=== PATIENT | female | born 1960 | race Caucasian/White ===

== ENCOUNTER 2019-09-06 06:46 | Outpatient (CLI) | payer BC, OTHER ==
[2019-09-06 13:52] LABS: #Eosinphils 0.1 thou/uL (0.0-0.7); #Lymphocytes 2.4 thou/uL (1.20-3.40); #Monocytes 0.4 thou/uL (0.11-0.59); #Neutrophils 2.5 thou/uL (1.40-6.50); %Basophils 0.5 % (0.0-1.0); %Eosinophils 2.1 % (0.0-10.0); %Lymphocytes 43.4 % (21.0-51.0); %Monocytes 8.1 % (0.0-10.0); %Neutrophils 45.9 % (42.0-75.0); Hemoglobin 14.1 g/dL (12.0-16.0); Mean Corpuscular HGB CONC 34.6 g/dL (32.0-36.0); Mean Corpuscular Hemoglobin 32.6 pg (27.0-31.0); Mean Corpuscular Volume 94.2 fL (78.0-98.0); Mean Platelet Volume 9.1 fL (7.4-10.4); Platelet Count 269 thou/uL (130-400); RBC Distribution Width 11.7 % (11.5-14.5); Red Blood Cell (RBC) Count 4.32 mill/uL (4.20-5.40); White Blood Cell (WBC) Count 5.4 thou/uL (4.8-10.8)
[2019-09-06 14:27] LABS: Bacteria/HPF None Seen HPF (None Seen); Bilirubin Negative (Negative); Blood, Urine Negative (Negative); Clarity Clear (Clear); Glucose, Urine (Dipstick) Normal (Negative); Ketone, Urine Negative (Negative); Leukocyte Negative Leu/uL (Negative); Nitrite Negative (Negative); Protein, Urine (Dipstick) Negative (Neg-Trace); RBC/HPF 0-3 HPF (0-3); Specific Gravity, Urine 1.006 (1.002-1.036); Squamous Epithelial None Seen HPF (0-3); Urobilinogen Normal mg/dL (Less than 2); WBC/HPF 0-3 HPF (0-3); pH, Urine 7.5 (5.0-9.0)
[2019-09-06 14:30] LABS: Anion Gap 14 mmol/L (10-20); BUN (Urea Nitrogen) 13 mg/dL (9.8-20.1); Calc. Creatinine Clearance 0 mL/min (70-130); Calcium 10.1 mg/dL (7.8-10.44); Carbon Dioxide 29 mmol/L (22-29); Chloride 102 mmol/L (98-107); Estimated GFR-MDRD 79; Glucose 165 mg/dL (70-105); Potassium 4.3 mmol/L (3.5-5.1); Sodium 141 mmol/L (136-145)
[2019-09-07 11:43] LABS: SARS-CoV-2 MS2 Positive; SARS-CoV-2 N Gene Negative; SARS-CoV-2 S Gene Negative; SARS-CoV-2 orf1ab Negative
== END 2019-09-06 06:47 | disposition home or self-care (01) ==
LOC: LABBT 06:46
PROVIDERS: ATTEND Orthopaedic Surgery
DX: Z01.818 Encounter for other preprocedural examination (principal); Z11.59 Encounter for screening for other viral diseases; M17.11 Unilateral primary osteoarthritis, right knee
CPT/HCPCS: 80048; 81001; 85025; 85610; 87081; 87635; 93005; 93010; U0003

== ENCOUNTER 2019-09-06 10:15 | Inpatient (IN) | payer BC ==
[2019-09-10] MEDS ORDERED: Fentanyl 100 MCG/2 ML VIAL ONE ×2 (07:48→10:23)
[2019-09-10] MEDS ORDERED: Midazolam HCl 2 mg/2 ml Vial ONE (07:48)
[2019-09-10] MEDS ORDERED: Vancomycin 1.5 GRAM/300 ML BAG ONE (08:32)
[2019-09-10] MEDS ORDERED: Tranexamic Acid 1,000 MG/10 ML VIAL ONE ×2 (08:32→12:09)
[2019-09-10] MEDS ORDERED: Sodium Chloride 0.9% 100 ML ONE (08:33)
[2019-09-10] MEDS ORDERED: Ropivacaine 0.2% HCl/PF (40 MG/20 ML VIAL) ONE (09:29)
[2019-09-10] MEDS ORDERED: Metoclopramide HCl 10 MG/2 ML VIAL ONE (09:29)
[2019-09-10] MEDS ORDERED: Ketorolac Tromethamine 30 MG/ML VIAL ONE (09:29)
[2019-09-10] MEDS ORDERED: Lidocaine 1% PF 5 ML VIAL ONE (09:29)
[2019-09-10] MEDS ORDERED: Ondansetron PF 4 MG/2 ML Vial ONE (09:29)
[2019-09-10] MEDS ORDERED: PROPOFOL 200 MG/20 ML VIAL ONE (09:29)
[2019-09-10] MEDS ORDERED: Bupivacaine HCl 0.5%/Epinephrine 1:200,000/PF 30 ml Vial ONE (09:29)
[2019-09-10] MEDS ORDERED: Acetaminophen 325 MG TAB PO PRN ×2 (10:14→11:43)
[2019-09-10] MEDS ORDERED: HYDROcodone/Acetaminophen 10/325 mg Tablet PO PRN (10:14)
[2019-09-10] MEDS ORDERED: Zolpidem Tartrate 5 MG TAB PO PRN ×2 (10:14→11:43)
[2019-09-10] MEDS ORDERED: Promethazine HCl 25 MG/ML VIAL IM PRN ×3 (10:14→12:00)
[2019-09-10] MEDS ORDERED: Fentanyl 100 MCG/2 ML VIAL SLOW IVP PRN (10:14)
[2019-09-10] MEDS ORDERED: Ropivacaine HCl/PF 250 ML in Premix Bag 1 BAG NERVE BLCK SCH (10:14)
[2019-09-10] MEDS ORDERED: traMADol HCl 50 MG TAB PO PRN ×2 (10:14)
[2019-09-10] MEDS ORDERED: Ondansetron PF 4 MG/2 ML Vial IVP PRN ×2 (10:14→11:43)
[2019-09-10] MEDS ORDERED: Bupivacaine PF 0.5% 30 ML VIAL ONE (10:52)
[2019-09-10] MEDS ORDERED: diphenhydrAMINE 25 MG CAP PO PRN (11:43)
[2019-09-10] MEDS ORDERED: Tranexamic Acid 1,000 MG in Sodium Chloride 0.9% 100 ML IVPB SCH (11:45)
[2019-09-10] MEDS ORDERED: Meperidine HCl/PF 25 MG/ML VIAL SLOW IVP PRN (12:00)
[2019-09-10] MEDS ORDERED: Promethazine HCl 25 MG/ML VIAL SLOW IVP PRN (12:00)
[2019-09-10] MEDS ORDERED: PACU-Morphine 4MG/ML VIAL SLOW IVP PRN (12:00)
--- NOTE | 2019-09-10 13:21 | OP ---
DATE OF PROCEDURE: 09/10/2019 COMMISSIONED FIRE OFFICER: Reece Cunha PA-C PREOPERATIVE DIAGNOSIS: Right knee osteoarthrosis. POSTOPERATIVE DIAGNOSIS: Right knee osteoarthrosis. PROCEDURE: Right total knee replacement using [employer] pinless navigation system. ANESTHESIA: General anesthetic. She had preoperative block. BLOOD LOSS: Minimal. COMPLICATIONS: None. TOURNIQUET TIME: DISPOSITION: She went to recovery room in stable condition. IMPLANTS: [employer] total knee system, femur size 2 cruciate retaining right femur, we size 1 primary tibial baseplate, 1 x 9 mm CS X3 tibial bearing, and a symmetric 27 x 8 X3 patella. INDICATIONS: A 59-year-old female who has significant pain on daily basis secondary from osteoarthrosis and wished to have her knee replaced. PROCEDURE IN DETAIL: After all appropriate consent forms were explained and signed, the patient was taken back to the operating room and at this time was given general anesthetic. Once the level of anesthesia was appropriate, a well-padded tourniquet was placed on the right leg, and the leg was then prepped and draped in standard surgical fashion. The limb was exsanguinated and tourniquet taken up to 300 mmHg. Midline incision was made with a 10 blade down through the skin and subcutaneous tissue. Bovie electrocautery was used to coagulate any brisk venous bleeding. A new blade was used to make a medial parapatellar arthrotomy. Small subperiosteal release was performed medially and excess fat pad was removed. The knee was flexed up to gain access to the femur. The femur was navigated and distal femoral resection was made. Epicondylar access was used to align our sizing jig and this was pinned in place. We sized our femur to be a 2. 4:1 cutting block was applied and pinned. Anterior and posterior chamfer cuts were then made. We navigated out our proximal tibia and made our proximal tibial resection. Spreaders were used to remove any posterior osteophytes off the back of the femur as well as remaining meniscal tissue. A long alignment demarco was then used to achieve correct rotation of our tibial baseplate and a size 1 primary tibial baseplate was chosen. This was pinned in place. We trialed the polyethylene and a 1 x 9 mm CS X3 tibial bearing polyethylene gave us full extension and good stability throughout range of motion. Two towel clips and a saw were used to cut our patella. Three lug nuts were drilled and symmetric 27 x 8 X3 patella was trialed which sat nicely in the trochlear groove. We then drilled our femur and punched our tibia. All components were removed. The knee was thoroughly irrigated and dried. Cement was mixed into the cement gun on the back table. Components were then placed. The knee was held out in full extension until the cement had dried. All excess bone cement was removed. Multiple #2 Vicryl stitches as well as a Quill were used to close our extensor mechanism. 0 Quill followed by a running Monoderm was then used to close the skin. Surgicel glue was then used on the skin. Once this had dried, soft tissue dressing was applied to the limb, tourniquet was let down, and the toes pinked up nicely. The patient was then awakened and taken to the recovery room in stable condition. All counts were correct at the end of the case. The patient did receive preoperative IV antibiotics. The patient was injected with Marcaine for postoperative pain relief. The dental assistant instructor surgeon was present and participated in all aspects of the knee replacement including the approach, placement of the prosthesis, and closure. Job ID: [id number]
[2019-09-10 13:22] VITALS: BMI 36.7
[2019-09-10] MEDS: Sodium Chloride 0.9% 1,000 ML IV SCH ×2 (13:31→21:50)
[2019-09-10] MEDS: Ketorolac Tromethamine 30 MG/ML VIAL IVP SCH ×2 (13:32→17:33)
[2019-09-10] MEDS: HYDROcodone/Acetaminophen 10/325 mg Tablet PO PRN (16:08)
--- NOTE | 2019-09-10 17:13 | PDOC.HOSPP ---
- Subjective Encounter Date: 09/10/19 Encounter Time: 18:00 Subjective: Seen for medical management after right knee replacement. - Objective Vital Signs & Weight: Vital Signs (12 hours) Temp Pulse Resp BP Pulse Ox 09/10/19 15:20 98.4 F 83 14 116/77 98 09/10/19 12:55 97.9 F 83 18 126/84 94 L Weight Weight 188 lb Additional Labs: Accuchecks 09/10/19 13:20 POC Glucose 140 H EKG Reviewed by me: Yes (SR [id number]) Hospitalist ROS - Medication Medications: Allergies: NKDA Active Medications Generic Name Dose Route Start Last Admin Trade Name Freq PRN Reason Stop Dose Admin Hydrocodone Bitart/Acetaminophen 2 tab 09/10/19 10:14 09/10/19 16:08 [place] 10/325 PO 2 tab Q4H PRN Administration PAIN (4-6) Sodium Chloride 1,000 mls @ 100 mls/hr 09/10/19 11:45 09/10/19 13:31 Normal Saline 0.9% IV Not Given .Q10H DENNIS Tranexamic Acid 1,000 mg/ 110 mls @ 200 mls/hr 09/10/19 11:45 09/10/19 13:31 Sodium Chloride IVPB 09/10/19 21:00 Not Given NOW DENNIS Ketorolac Tromethamine 30 mg 09/10/19 12:00 09/10/19 13:32 Toradol IVP 09/12/19 06:01 Not Given Q6HR DENNIS Daily Medications: Fish Oil 1 cap daily Centrum Silver Women Cholecalciferol 1 tab daily Calcium 500 mg daily Turmeric Root 500 mg daily Venlafaxine HCl 150 mg daily Omeprazole 40 mg daily Atorvastatin 80 mg daily ASA 81 mg daily metformin 1000 mg twice a day Lisinopril/ HCTZ 10-12.5mg 1 tab daily - Exam General Appearance: NAD, awake alert Eye: PERRL, anicteric sclera ENT: normocephalic atraumatic, moist mucosa Neck: supple, symmetric, no lymphadenopathy Heart: RRR, no murmur, no gallops, no rubs, normal peripheral pulses Respiratory: CTAB, no wheezes, no rales, no ronchi, normal chest expansion Gastrointestinal: soft, non-tender, non-distended, normal bowel sounds Extremities: no cyanosis, no clubbing Psychiatric: normal affect, normal behavior Hosp A/P (1) HTN (hypertension) Code(s): I10 - ESSENTIAL (PRIMARY) HYPERTENSION Status: Acute Qualifiers: Hypertension type: essential hypertension Qualified Code(s): I10 - Essential (primary) hypertension (2) DM type 2 (diabetes mellitus, type 2) Status: Acute Qualifiers: Diabetes mellitus penitentiary insulin use: without superintendent container terminal use (3) Hyperlipidemia Code(s): E78.5 - HYPERLIPIDEMIA, UNSPECIFIED Status: Acute (4) GERD (gastroesophageal reflux disease) Code(s): K21.9 - GASTRO-ESOPHAGEAL REFLUX DISEASE WITHOUT ESOPHAGITIS Status: Acute - Plan HTN: stable, will continue to monitor VS DM 2: stable, will monitor accucheks AC and HS with mild SSI Hyperlipidemia: will reconcile home medications Will recheck lab work in am
[2019-09-10] MEDS: CEFAZOLIN 2 GM in Premix Bag 1 BAG IVPB SCH (17:34)
[2019-09-10] MEDS: Senokot S 8.6-50 MG TAB PO SCH (20:27)
[2019-09-10] MEDS: Ferrous Gluconate 324 MG TAB PO SCH (20:27)
[2019-09-10] MEDS: Aspirin 81 mg Enteric Coated Tablet PO SCH (20:27)
[2019-09-10] MEDS ORDERED: Vancomycin 1.5 GRAM/300 ML BAG 1.5 GM in Premix Bag 1 BAG IVPB SCH (21:00)
[2019-09-10] MEDS ORDERED: metFORMIN 500 MG TAB PO SCH (21:45)
[2019-09-10] MEDS ORDERED: Dextrose 5% in Water 1,000 ML IV PRN (22:17)
[2019-09-10] MEDS ORDERED: Dextrose 50% Abboject 50 ML SYRINGE SLOW IVP PRN (22:17)
[2019-09-10] MEDS ORDERED: Cyclobenzaprine 10 MG TAB PO SCH (22:45)
[2019-09-11] MEDS: Ketorolac Tromethamine 30 MG/ML VIAL IVP SCH ×5 (00:25→23:24)
[2019-09-11] MEDS: CEFAZOLIN 2 GM in Premix Bag 1 BAG IVPB SCH (00:25)
[2019-09-11 06:02] LABS: Mean Corpuscular Hemoglobin 31.1 pg (27.0-31.0); Mean Corpuscular Volume 94.3 fL (78.0-98.0); Mean Platelet Volume 8.5 fL (7.4-10.4); Platelet Count 238 thou/uL (130-400); RBC Distribution Width 11.9 % (11.5-14.5); Red Blood Cell (RBC) Count 3.53 mill/uL (4.20-5.40); White Blood Cell (WBC) Count 8.3 thou/uL (4.8-10.8)
[2019-09-11] MEDS: Sodium Chloride 0.9% 1,000 ML IV SCH ×2 (07:56→10:11)
[2019-09-11] MEDS: Fish Oil 1,000 MG CAP PO SCH (07:57)
[2019-09-11] MEDS: metFORMIN 500 MG TAB PO SCH ×2 (07:57→17:29)
[2019-09-11] MEDS: Senokot S 8.6-50 MG TAB PO SCH ×2 (07:57→20:39)
[2019-09-11] MEDS: Atorvastatin Calcium 40 MG TAB PO SCH (07:57)
[2019-09-11] MEDS: Venlafaxine HCl XR 150 MG CAP PO SCH (07:57)
[2019-09-11] MEDS: Ferrous Gluconate 324 MG TAB PO SCH ×2 (07:58→20:39)
[2019-09-11] MEDS: Aspirin 81 mg Enteric Coated Tablet PO SCH ×2 (07:58→20:39)
[2019-09-11] MEDS: Multivitamin W/ Minerals 1 TAB PO SCH (07:58)
[2019-09-11] MEDS ORDERED: Non-Formulary Item 1 EACH (Omeprazole [Omeprazole] 40 MG) PO SCH (09:00)
[2019-09-11] MEDS: HYDROcodone/Acetaminophen 10/325 mg Tablet PO PRN (09:08)
[2019-09-11] MEDS: HumaLOG 300 UNITS/3 ML VIAL SC PRN ×2 (11:49→20:48)
--- NOTE | 2019-09-11 13:40 | PRG ---
DATE OF SERVICE: 09/11/2019 SUBJECTIVE: Ariane is a 59-year-old female, postop day 1 from right total knee arthroplasty. She admits to having some discomfort, but other than that, she has been able to stand at the bedside and ambulate short distances. She has no complaints otherwise. OBJECTIVE: VITAL SIGNS: Temperature 99.2, pulse 96, respiratory rate 20, and blood pressure 94/62. GENERAL: She is alert and oriented to person, place, time and situation, responsive and appropriate with examiner. EXTREMITIES: She is neurovascularly intact in the right lower extremity and she has good 5/5 strength dorsiflexion, inversion, and eversion. LABORATORY DATA: Hemoglobin and hematocrit are 11.0 and 33.2. IMPRESSION: This is a 59-year-old female, postoperative day 1 right total knee arthroplasty, doing well. PLAN: Continue current care. Probable discharge home tomorrow. Job ID: [id number]
[2019-09-12] MEDS: Sodium Chloride 0.9% 1,000 ML IV SCH ×2 (03:04→09:10)
[2019-09-12] MEDS: HYDROcodone/Acetaminophen 10/325 mg Tablet PO PRN ×3 (03:05→13:52)
[2019-09-12 05:23] LABS: Mean Corpuscular Hemoglobin 31.3 pg (27.0-31.0); Mean Corpuscular Volume 94.9 fL (78.0-98.0); Mean Platelet Volume 8.7 fL (7.4-10.4); Platelet Count 208 thou/uL (130-400); RBC Distribution Width 11.9 % (11.5-14.5); Red Blood Cell (RBC) Count 3.21 mill/uL (4.20-5.40); White Blood Cell (WBC) Count 8.3 thou/uL (4.8-10.8)
[2019-09-12] MEDS: Ketorolac Tromethamine 30 MG/ML VIAL IVP SCH (05:37)
[2019-09-12] MEDS: HumaLOG 300 UNITS/3 ML VIAL SC PRN (05:45)
[2019-09-12] MEDS: metFORMIN 500 MG TAB PO SCH (07:58)
[2019-09-12] MEDS: Aspirin 81 mg Enteric Coated Tablet PO SCH (07:59)
[2019-09-12] MEDS: Senokot S 8.6-50 MG TAB PO SCH (07:59)
[2019-09-12] MEDS: Venlafaxine HCl XR 150 MG CAP PO SCH (07:59)
[2019-09-12] MEDS: Multivitamin W/ Minerals 1 TAB PO SCH (07:59)
[2019-09-12] MEDS: Atorvastatin Calcium 40 MG TAB PO SCH (07:59)
[2019-09-12] MEDS: Ferrous Gluconate 324 MG TAB PO SCH (07:59)
[2019-09-12] MEDS: Fish Oil 1,000 MG CAP PO SCH (07:59)
[2019-09-12 12:20] VITALS: BP 136/85; TEMP 98
== END 2019-09-12 14:45 | disposition home or self-care (01) | DRG 470 ==
LOC: SURG A 09-10 07:37 → SJJU 09-10 12:50
PROVIDERS: ADMIT Orthopaedic Surgery; ATTEND Orthopaedic Surgery
PROC: 0SRC0J9 Replacement of Right Knee Joint with Synthetic Substitute, Cemented, Open Approach (ICD-10-PCS; principal; 2019-09-10)
DX: M17.11 Unilateral primary osteoarthritis, right knee (principal); I10 Essential (primary) hypertension; E78.5 Hyperlipidemia, unspecified; G47.30 Sleep apnea, unspecified; J30.2 Other seasonal allergic rhinitis; F41.9 Anxiety disorder, unspecified; E11.9 Type 2 diabetes mellitus without complications; K21.9 Gastro-esophageal reflux disease without esophagitis; F32.9 Major depressive disorder, single episode, unspecified; Z79.899 Other long term (current) drug therapy; Z99.89 Dependence on other enabling machines and devices; Z98.51 Tubal ligation status; Z79.84 Long term (current) use of oral hypoglycemic drugs; Z79.82 Long term (current) use of aspirin
CPT/HCPCS: 36415; 36416; 85027; C1713; C1776; J0670; J0690; J1885; J2250; J2405; J2704; J2765; J2795; J3010; J3370; J3490; S0020

== ENCOUNTER 2020-01-25 15:09 | Outpatient (CLI) | payer BC ==
--- NOTE | 2020-01-25 17:04 | MRI ---
LEFT KNEE MRI WITHOUT IV CONTRAST: 01/25/20 HISTORY: Pain left knee. FINDINGS: There is a moderate amount of suprapatellar recess fluid, evidence for joint effusion. Large somewhat complicated appearing semimembranosus gastrocnemius recess measuring approximately2 x 3 x 5 cm in si ze. There is some generalized tricompartment cartilage loss with hypertrophic osteophytosis. There is an irregular posterior root tear with minimal displacement involving the posterior root of the media l meniscus with some intrasubstance cystic change in the body as well as some minimal medial subluxat ion of the body of the medial meniscus. The lateral meniscus demonstrates blunting and irregularity o f the posterior root, evidence for a degenerative type posterior root tear and/or focal fraying. Ante rior and posterior cruciate ligaments appear intact as do the collateral ligaments. There is some flu id density superficial and deep to the MCL. This could suggest some mild MCL sprain. Quadriceps and p atellar tendons appear intact. No significant acute abnormal marrow edema. IMPRESSION: Evidence for suprapatellar recess fluid as well as fluid within a prominent popliteal fossa cyst. Min imally displaced posterior root tear medial meniscus with some subluxation medially of the body of th e medial meniscus and some intrasubstance degenerative cystic change. Blunting and irregularity of th e posterior root of the lateral meniscus probably degenerative type tear versus focal degenerative ty pe tear and/or focal fraying. Minimal fluid density superficial and deep to the superficial MCL possibly very mild sprain. POS: RRE
== END 2020-01-25 15:10 | disposition home or self-care (01) ==
LOC: BICMRI 15:09
PROVIDERS: ATTEND Orthopaedic Surgery
DX: M25.562 Pain in left knee (principal); R93.7 Abnormal findings on diagnostic imaging of other parts of musculoskeletal system